=== PATIENT | male | born 2000 | race African-American/Black ===

== ENCOUNTER 2022-03-16 12:12 | Emergency (ER) | payer OTHER ==
[~2022-03-16] VITALS: Ht 167.6 cm; Wt 59.1 kg
[2022-03-16 12:13] VITALS: BP 134/69
[2022-03-16] MEDS ORDERED: OSEL75CA PO (15:42)
== END 2022-03-16 15:59 | disposition home or self-care (01) ==
LOC: EDBD 12:12 → M ED 12:12
DX: J09.X2 Influenza due to identified novel influenza A virus with other respiratory manifestations (principal)

== ENCOUNTER 2024-06-15 18:55 | Emergency (ER) | payer OTHER ==
[~2024-06-15] VITALS: Ht 167.6 cm; Wt 58.6 kg
[~2024-06-15 18:55] MED LIST: OSEL75CA PO
[2024-06-15 18:56] VITALS: BP 110/58; TEMP 98.1; O2SAT 99
[2024-06-16] MEDS ORDERED: CEFD1CAP9 PO (13:12)
== END 2024-06-15 21:07 | disposition left against medical advice (07) ==
LOC: M ED 18:55
DX: Z53.21 Procedure and treatment not carried out due to patient leaving prior to being seen by health care provider (principal)

== ENCOUNTER 2024-06-16 08:39 | Emergency (ER) | payer OTHER ==
[~2024-06-16] VITALS: Ht 167.6 cm; Wt 59.3 kg
[2024-06-16 10:02] LABS: APPEARANCE, URINE MANUAL CLEAR (CLEAR); COLOR, URINE MANUAL ORANGE (YELLOW)
[2024-06-16 10:03] LABS: BILIRUBIN, URINE MANUAL OBSCURED (NEGATIVE); BLOOD URINE MANUAL OBSCURED (NEGATIVE); GLUCOSE, URINE (UA) MANUAL OBSCURED mg/dL (NEGATIVE); KETONE, URINE MANUAL OBSCURED mg/dL (NEGATIVE); LEUKOCYTE ESTERASE, URINE MAN OBSCURED (NEGATIVE); NITRITE, URINE MANUAL OBSCURED (NEGATIVE); PH,URINE MAN OBSCURED UNITS (5.0 - 7.0); PROTEIN, URINE MANUAL OBSCURED mg/dL (NEGATIVE); SPECIFIC GRAVITY,URINE MANUAL 1.028 (1.002-1.035); UROBILINOGEN, URINE MANUAL OBSCURED mg/dl (NORMAL)
[2024-06-16 10:23] LABS: RBC, URINE 0-1 /hpf (0-3); SQUAMOUS EPITHELIAL CELL URINE NONE SEEN /hpf (SMALL AMT); WBC, URINE 0-1 /hpf (0-3)
[2024-06-16 10:24] LABS: BACTERIA, URINE MOD AMOUNT; HYALINE CAST, URINE NONE SEEN /lpf (0-1); MUCUS, URINE LARGE AMOUNT (NEGATIVE)
[2024-06-16 12:46] LABS: Trichomonas vaginalis (AMP) NOT DETECTED (NEGATIVE)
[2024-06-16 13:10] LABS: GC DNA AMPLIFICATION NEGATIVE (NEGATIVE)
[2024-06-16] MEDS ORDERED: CEFD1CAP9 PO (13:12)
[2024-06-16 13:21] VITALS: BP 123/57; TEMP 97; O2SAT 99
== END 2024-06-16 13:28 | disposition home or self-care (01) ==
LOC: M ED 08:39
DX: N30.01 Acute cystitis with hematuria (principal); Z79.2 Long term (current) use of antibiotics

== ENCOUNTER → 2024-07-06 | Outpatient (REF) | payer OTHER ==
[~2024-07-06] MED LIST changes: +CEFD1CAP9 PO
[2024-07-07 11:59] LABS: GC DNA AMPLIFICATION NEGATIVE (NEGATIVE)
== END ==
LOC: M LAB REF 09:41
PROVIDERS: ATTEND Physician Assistant
DX: N34.1 Nonspecific urethritis (principal)

== ENCOUNTER → 2024-07-31 | Outpatient (REF) | payer OTHER ==
[2024-07-31 22:19] LABS: Trichomonas vaginalis (AMP) NOT DETECTED (NEGATIVE)
[2024-07-31 22:43] LABS: GC DNA AMPLIFICATION NEGATIVE (NEGATIVE)
== END ==
LOC: M LAB REF 20:11
PROVIDERS: ATTEND Physician Assistant Medical
DX: Z20.2 Contact with and (suspected) exposure to infections with a predominantly sexual mode of transmission (principal)

== ENCOUNTER 2024-09-07 13:05 | Emergency (ER) | payer OTHER ==
[~2024-09-07] VITALS: Ht 167.6 cm; Wt 55.5 kg
[2024-09-07] MEDS ORDERED: COLA100C5 PO (13:18)
[2024-09-07] MEDS ORDERED: ENEMENE6 PR (13:18)
[2024-09-07] MEDS ORDERED: MAGN100T PO (13:18)
[2024-09-07 16:14] VITALS: TEMP 97.1
[2024-09-07 18:44] VITALS: BP 118/59; O2SAT 100
[2024-09-07] MEDS ORDERED: BACT800T5 PO (19:19)
== END 2024-09-07 19:24 | disposition home or self-care (01) ==
LOC: M ED 13:05
DX: N41.0 Acute prostatitis (principal); Z79.899 Other long term (current) drug therapy; Z79.2 Long term (current) use of antibiotics

== ENCOUNTER → 2024-09-29 | Outpatient (CLI) | payer OTHER ==
[~2024-09-29] MED LIST changes: +BACT800T5 PO; +COLA100C5 PO; +ENEMENE6 PR; +GASTROGRAFIN SOLUTION 30ML ONE; +ISOVUE-370 76% 100ML VIAL ONE; +MAGN100T PO
== END ==
LOC: M PLAIMG 12:35
PROVIDERS: ATTEND Student in an Organized Health Care Education/Training Program
DX: R63.4 Abnormal weight loss (principal)
CPT/HCPCS: 74177; Q9963; Q9967

== ENCOUNTER → 2025-07-05 | Outpatient (REF) | payer OTHER ==
[~2025-07-05] MED LIST changes: -ENEMENE6 PR; -GASTROGRAFIN SOLUTION 30ML ONE; -ISOVUE-370 76% 100ML VIAL ONE; +SODI133E28 PR
[2025-07-05 18:37] LABS: AMORPHOUS SEDIMENT SMALL (NEGATIVE); APPEARANCE, URINE CLOUDY (CLEAR); BACTERIA, URINE AUTO 1+ (NEGATIVE); BILIRUBIN, URINE AUTO NEGATIVE (NEGATIVE); BLOOD, URINE BLOOD NEGATIVE (NEGATIVE); CALCIUM OXALATE CRYSTALS SMALL; GLUCOSE, URINE (UA) AUTO 2+ mg/dL (NEGATIVE); KETONE, URINE AUTO NEGATIVE (NEGATIVE); LEUKOCYTE ESTERASE, URINE AUTO NEGATIVE (NEGATIVE); MUCUS, URINE SMALL (NEGATIVE); NITRITE, URINE AUTO NEGATIVE (NEGATIVE); PROTEIN, URINE AUTO NEGATIVE (NEGATIVE); RBC, URINE AUTO 2 /HPF (0-3); SPECIFIC GRAVITY URINE AUTO 1.024 (1.002-1.035); SQUAMOUS EPITHELIAL CELL UR AU 0 /HPF (0-6); UROBILINOGEN, URINE AUTO 2.0 mg/dL (0.0-2.0); WBC, URINE AUTO 1 /HPF (0-3)
[2025-07-05 18:55] LABS: Trichomonas vaginalis (AMP) NOT DETECTED (NEGATIVE)
[2025-07-05 19:19] LABS: GC DNA AMPLIFICATION NEGATIVE (NEGATIVE)
== END ==
LOC: M LAB REF 17:21
PROVIDERS: ATTEND Physician Assistant Medical
DX: Z20.2 Contact with and (suspected) exposure to infections with a predominantly sexual mode of transmission (principal)